=== PATIENT | female | born 1955 | race Caucasian/White ===

== ENCOUNTER 2024-09-26 11:07 | Inpatient (IN) | payer MEDICARE, BC ==
[~2024-09-26] VITALS: Ht 162.6 cm; Wt 88.0 kg
[2024-09-26 11:51] LABS: BASOPHILS ABSOLUTE AUTO 0.08 K/mm3 (0.00-0.23); BASOPHILS PERCENT AUTO 1 % (0-2); EOSINOPHILS ABSOLUTE AUTO 0.25 K/mm3 (0.00-0.68); EOSINOPHILS PERCENT AUTO 2 % (0-6); Hematocrit 32.0 % (33.0-51.0); Hemoglobin 9.7 g/dL (11.5-16.0); IMMATURE GRAN ABSOLUTE AUTO 0.09 K/mm3 (0.00-0.10); IMMATURE GRAN PERCENT AUTO 1 % (0-1); LYMPHOCYTES ABSOLUTE AUTO 1.53 K/mm3 (0.84-5.20); LYMPHOCYTES PERCENT AUTO 10 % (21-46); MONOCYTES ABSOLUTE AUTO 1.39 K/mm3 (0.16-1.47); MONOCYTES PERCENT AUTO 9 % (4-13); Mean Corpuscular HGB Conc 30.3 g/dL (31.5-36.5); Mean Corpuscular Volume 81 fL (80-100); NEUTROPHILS ABSOLUTE AUTO 11.40 K/mm3 (1.96-9.15); NEUTROPHILS PERCENT AUTO 77 % (41-73); NRBC ABSOLUTE 0.00 K/mm3 (0.00-0.02); NRBC Auto 0.0 /100 WBC (0.0-0.2); Platelet Count 432 K/mm3 (150-400); RDW Coefficient Variation 17.0 % (11.7-14.2); RDW Standard Deviation 50.1 fL (35.1-46.3)
[2024-09-26 12:01] LABS: Source, Urine Clean Catch
[2024-09-26 12:16] LABS: Alanine Aminotransfer (ALT/SGP 18.0 U/L (12-78); Albumin, Blood 3.2 g/dL (3.4-5.0); Albumin/Globulin Ratio 0.7 (0.8-1.8); Anion Gap 12.0 mmol/L (3-11); Aspartate Aminotrans (AST/SGOT 11.0 U/L (12-37); Bilirubin, Total 0.4 mg/dL (0.1-1.0); Blood Urea Nitrogen 37.0 mg/dL (8-24); CO2, Blood 24.0 mmol/L (21-32); Calcium, Blood 9.7 mg/dL (8.5-10.1); Chloride, Blood 103.0 mmol/L (98-108); Creatinine, Blood 2.91 mg/dL (0.40-1.00); Globulin, Blood 4.8 g/dL (2.2-4.0); Glucose, Blood 106.0 mg/dL (70-99); Potassium, Blood 3.5 mmol/L (3.5-5.5); Sodium, Blood 135.0 mmol/L (136-145); Total Protein, Blood 8.0 g/dL (6.4-8.2)
[2024-09-26 12:51] LABS: Bilirubin, Urine Neg (Neg); Color, Urine Amber (P-Yellow); Glucose Qualitative, Urine Neg (Neg); Ketones, Urine Neg (Neg); Leukocyte Esterase, Urine 2+ (Neg); Protein, Urine 2+ (Neg); Specific Gravity, Urine 1.025 (1.003-1.022); Urobilinogen, Urine NORM (Normal)
[2024-09-26 12:57] LABS: White Blood Cells, Urine 25-50 /hpf (0-5); Yeast/Fungi Urine Few /hpf
[2024-09-26] MEDS ORDERED: CefTRIAXone Sodium 1,000 MG in NS 100 ML IV ONE (13:35)
[2024-09-26] MEDS ORDERED: NS 1,000 ML IV SCH ×3 (13:35→18:00)
[2024-09-26] MEDS ORDERED: Ondansetron HCl 2 MG / ML 2ML Vial IV PRN (16:10)
[2024-09-26] MEDS ORDERED: Polyethylene Glycol 3350 17 gm PO PRN (16:50)
[2024-09-26 17:21] VITALS: BP 99/82
--- NOTE | 2024-09-26 18:16 | NUR ---
arrival to pcu/shift summary patient arrived to pcu at 1715. patient is alert and oriented x4, but is a poor historian and needs to be redircted back to the conversation. perrla. patient will fall asleep when not being conversed with. patient denies pain, chest pain/pressure or shortness of breath. vital signs stable. tele sinus rhythm 70s. spo2 >90% on room air. patient had a recent nephrostmy tube placement and removal when in [facility] and info for that is in the paper chart. patient reports pain with urination. patient has reddness to outer big right toe and right second toe that is blanchagle. photoes in chart. patient exorication on bottom and pictures in chart. home med rec not complete due to patient not knowing home meds and not sure what pharmacy she uses. admit history complete. admit assessment complete. plan to do iv abx and iv fluids at this time.
--- NOTE | 2024-09-26 19:32 | NUR ---
ASSUMPTION OF CARE ASSUMED PT'S CARE AT 1900,BEDSIDE REPORT COMPLETED.PT SLEEPING,BREATHING EVEN AND UNLABORED.NO S/S OF PAIN/DISCOMFORT NOTED.PLAN OF CARE REVIEWED.OXYGEN SATURATION 91% ON RA.CALL LIGHT AND PT'S ITEMS WITHIN REACH.MONITORING ONGOING PER CARE PLAN.
[2024-09-26 20:12] VITALS: BP 123/58
[2024-09-26] MEDS ORDERED: Heparin Sodium,Porcine 5,000 UNIT/0.5 ML SDV SC SCH (21:00)
[2024-09-26] MEDS ORDERED: Lactobacil 2-S.Thermo-Bifido 1 1 Cap PO SCH (21:00)
[2024-09-26 23:45] VITALS: BP 128/66
[2024-09-26 23:55] VITALS: BP 142/69
--- NOTE | 2024-09-27 00:48 | NUR ---
CARE NOTE DURING MIDNIGHT ASSESSMENT NOTED NO URINE OUTPUT SINCE 1900.PT NOT INCONTINENT OF URINE UPON CHECKING HER BRIEF.PT C/O SUPRAPUBIC PAIN WITH PALPATION BUT DID NOT ANSWER WHEN ASKED IF SHE FEELS THE URGE TO URINATE.PT REFUSED TO BE BLADDER SCANNED.INFORMED PT THAT WILL CHECK ON HER AGAIN AND IF NO URINE OUTPUT NOTED,BLADDER SCANNING WILL BE NECESSARY TO CHECK IF SHE IS RETAINING URINE.PT WENT BACK TO SLEEP.
[2024-09-27 04:20] VITALS: BP 134/62
[2024-09-27 04:55] LABS: BASOPHILS ABSOLUTE AUTO 0.03 K/mm3 (0.00-0.23); BASOPHILS PERCENT AUTO 0 % (0-2); EOSINOPHILS ABSOLUTE AUTO 0.32 K/mm3 (0.00-0.68); EOSINOPHILS PERCENT AUTO 4 % (0-6); Hematocrit 32.0 % (33.0-51.0); Hemoglobin 9.2 g/dL (11.5-16.0); IMMATURE GRAN ABSOLUTE AUTO 0.04 K/mm3 (0.00-0.10); IMMATURE GRAN PERCENT AUTO 1 % (0-1); LYMPHOCYTES ABSOLUTE AUTO 1.30 K/mm3 (0.84-5.20); LYMPHOCYTES PERCENT AUTO 17 % (21-46); MONOCYTES ABSOLUTE AUTO 0.62 K/mm3 (0.16-1.47); MONOCYTES PERCENT AUTO 8 % (4-13); Mean Corpuscular HGB Conc 28.8 g/dL (31.5-36.5); Mean Corpuscular Volume 84 fL (80-100); NEUTROPHILS ABSOLUTE AUTO 5.14 K/mm3 (1.96-9.15); NEUTROPHILS PERCENT AUTO 69 % (41-73); NRBC ABSOLUTE 0.00 K/mm3 (0.00-0.02); NRBC Auto 0.0 /100 WBC (0.0-0.2); Platelet Count 406 K/mm3 (150-400); RDW Coefficient Variation 17.1 % (11.7-14.2); RDW Standard Deviation 51.8 fL (35.1-46.3)
[2024-09-27 05:27] LABS: Alanine Aminotransfer (ALT/SGP 15.0 U/L (12-78); Albumin, Blood 2.7 g/dL (3.4-5.0); Albumin/Globulin Ratio 0.6 (0.8-1.8); Anion Gap 7.0 mmol/L (3-11); Aspartate Aminotrans (AST/SGOT 11.0 U/L (12-37); Bilirubin, Total 0.2 mg/dL (0.1-1.0); Blood Urea Nitrogen 31.0 mg/dL (8-24); CO2, Blood 25.0 mmol/L (21-32); Calcium, Blood 9.0 mg/dL (8.5-10.1); Chloride, Blood 112.0 mmol/L (98-108); Creatinine, Blood 1.73 mg/dL (0.40-1.00); Globulin, Blood 4.4 g/dL (2.2-4.0); Glucose, Blood 86.0 mg/dL (70-99); Potassium, Blood 4.1 mmol/L (3.5-5.5); Sodium, Blood 140.0 mmol/L (136-145); Total Protein, Blood 7.1 g/dL (6.4-8.2)
[2024-09-27] MEDS ORDERED: Levothyroxine Sodium 0.137 MG Tab PO SCH (06:00)
--- NOTE | 2024-09-27 06:10 | NUR ---
PT MONITORED THROUGH THE NIGHT,VOIDED ONCE DURING THE SHIFT.PAIN MEDS GIVEN PER PT'S REQUEST.PT NOTED TO HAVE MOOD SWINGS,OCCASIONALLY VERBALLY AGGRESSIVE AND YELLS AT STAFF.IRRITABLE AND ARGUES WITH STAFF.NOT EASILY REDIRECTABLE.PT AWAKE,RESTING IN BED.PT GIVEN PRN TRAMADOL 50MG PO FOR PAIN.PT STATES THAT SHE TAKES 200MCG OF LEVOTHYROXINE,ORDERED DOSE 0.137MG.THIS NURSE CONTACTING DOCTOR FOR DOSE ADJUSTMENT.PT DENIES FURTHER NEEDS.CALL LIGHT AND PT'S ITEMS WITHIN REACH.BED ALARM ON.MONITORING ONGOING PER CAREPLAN.
[2024-09-27 07:45] VITALS: BP 125/70
[2024-09-27] MEDS ORDERED: CefTRIAXone Sodium 1,000 MG in NS 100 ML IV SCH (09:00)
--- NOTE | 2024-09-27 09:38 | NUR ---
AM NOTE PT A&OX4, VSS, SR IN 70S ON TELE, CONT. PULSE OX SATTING AT 97% 2L O2, REMOVED O2 SAT>94% RA. PT ANXIOUS ABOUT PLAN OF CARE. ROUNDED ALL QUESTIONS ANSWERED. 1PA WITH FWW TO BSC TO URINATE. CALL LIGHT IN REACH.
[2024-09-27] MEDS ORDERED: Albuterol HFA200 ACT/6.7 GM INH INH SCH (10:50)
[2024-09-27 11:07] VITALS: BP 131/69
[2024-09-27] MEDS ORDERED: Albuterol HFA200 ACT/6.7 GM INH INH PRN (13:40)
[2024-09-27] MEDS ORDERED: LEVOTHYROXINE200 MCG PO (15:26)
[2024-09-27] MEDS ORDERED: OMEP20ER PO (15:26)
--- NOTE | 2024-09-27 18:36 | NUR ---
PATIENT ARRIVED TO THE UNIT VIA WHEELCHAIR, SHE WAS ABLE TO TRANSFER WITH PERSON ASSIST TO THE BED. SKIN ASSESS, IV ASSESSED; NOT PATENT; CALLED DR. HOLMAN TO SEE IF IV MEDS COULD BE CHANGED AND NO IV ACCESS COULD BE APPROPRIATE. PER DR. HOLMAN WOULD LIKE FOR THE PATIENT TO HAVE AN IV. PATIENT SETTLED IN ROOM, CALL LIGHT PROVIDED, NO SIGNS OR SYMPTOMS OF DISTRESS,PLAN OF CARE ONGOING.
--- NOTE | 2024-09-27 18:36 | NUR ---
CALLED AND GOT REPORT FROM RAFAEL GLASGOW
[2024-09-27 18:52] VITALS: BP 124/67
--- NOTE | 2024-09-27 18:52 | NUR ---
SHIFT/TRANSFER SUMMARY ASSUMED CARE FROM PRIOR DAY RN, BESIDE REPORT DONE, PT IN BED AND NOT NEEDING ANYTHING AT THIS TIME. MEDICATED FOR PAIN ONE TIME BY THIS RN, MIXED INCONTINENT/CONTINENT VOIDS TODAY. NO ACUTE EVENTS, PT TRANSFERRED UP TO MEDICAL FLOOR AT 1835, REPORT GIVEN TO MEDICAL FLOOR RN.
--- NOTE | 2024-09-27 18:59 | NUR ---
PT ARGUING WITH STAFF STATING THAT SHE WAS TOLD "DOWNSTAIRS" THAT SHE WAS DONE WITH THE IV AND WOULD BE SWITCHING TO ORAL MEDICATIONS. EXPLAINED TO THE PATIENT THAT I CALLED AND SPOKE WITH DR. HOLMAN, EXPLAINED TO HIM THAT THE PATIENT LOST IV ACCESS AND ISN'T WILLING TO GET A NEW IV. PER LAST NURSE NOTE; WOULD LIKE FOR THE PATIENT TO GET A NEW IV AND CONTINUE GETTING IV ANTIBIOTICS. PATIENT TOLD THIS RN AFTER THIS EXPLAINATION; TURNING RED IN THE FACE RAISING HER VOICE THAT "I WILL GO TO SNF, AND THAT SHE IS THE PATIENT AND THAT HER INSURANCE PAYS FOR ME TO BE HERE." AT THIS POINT I TOLD THE PATIENT I WASN'T GOING TO ARGUE WITH HER AND LEFT THE ROOM.
[2024-09-27 20:27] VITALS: BP 120/80
[2024-09-28 04:40] VITALS: BP 148/72
[2024-09-28 05:18] LABS: BASOPHILS ABSOLUTE AUTO 0.03 K/mm3 (0.00-0.23); BASOPHILS PERCENT AUTO 1 % (0-2); EOSINOPHILS ABSOLUTE AUTO 0.29 K/mm3 (0.00-0.68); EOSINOPHILS PERCENT AUTO 5 % (0-6); Hematocrit 27.1 % (33.0-51.0); Hemoglobin 8.0 g/dL (11.5-16.0); IMMATURE GRAN ABSOLUTE AUTO 0.04 K/mm3 (0.00-0.10); IMMATURE GRAN PERCENT AUTO 1 % (0-1); LYMPHOCYTES ABSOLUTE AUTO 1.69 K/mm3 (0.84-5.20); LYMPHOCYTES PERCENT AUTO 28 % (21-46); MONOCYTES ABSOLUTE AUTO 0.66 K/mm3 (0.16-1.47); MONOCYTES PERCENT AUTO 11 % (4-13); Mean Corpuscular HGB Conc 29.5 g/dL (31.5-36.5); Mean Corpuscular Volume 84 fL (80-100); NEUTROPHILS ABSOLUTE AUTO 3.43 K/mm3 (1.96-9.15); NEUTROPHILS PERCENT AUTO 56 % (41-73); NRBC ABSOLUTE 0.00 K/mm3 (0.00-0.02); NRBC Auto 0.0 /100 WBC (0.0-0.2); Platelet Count 348 K/mm3 (150-400); RDW Coefficient Variation 16.5 % (11.7-14.2); RDW Standard Deviation 50.4 fL (35.1-46.3)
[2024-09-28 05:49] LABS: Alanine Aminotransfer (ALT/SGP 14 U/L (12-78); Albumin, Blood 2.5 g/dL (3.4-5.0); Albumin/Globulin Ratio 0.6 (0.8-1.8); Anion Gap 8 mmol/L (3-11); Aspartate Aminotrans (AST/SGOT 9 U/L (12-37); Bilirubin, Total <0.1 mg/dL (0.1-1.0); Blood Urea Nitrogen 21 mg/dL (8-24); CO2, Blood 25 mmol/L (21-32); Calcium, Blood 8.8 mg/dL (8.5-10.1); Chloride, Blood 110 mmol/L (98-108); Creatinine, Blood 1.33 mg/dL (0.40-1.00); Globulin, Blood 3.9 g/dL (2.2-4.0); Glucose, Blood 98 mg/dL (70-99); Potassium, Blood 4.1 mmol/L (3.5-5.5); Sodium, Blood 139 mmol/L (136-145); Total Protein, Blood 6.4 g/dL (6.4-8.2)
--- NOTE | 2024-09-28 05:54 | NUR ---
SHIFT SUMMARY PT ALERT AND ORIENTED TIMES 3-4 . PT ADMITTED FOR ON SEPSIS SECONDARY TO UTI. PT HAD IV PRIOR TO TRANSFER TO MED FLOOR. DURING NURSE (DAY) ACCEPTANCE OF CARE , PT WAS NOTICED TO NOT HAVE IV PLACED OR WAS TAPE TO PT BUT IV WAWS NOT CONNECTED. PT STATED THAT THEY LATER CLARIFIED BY RN TO BE PCU STAFF, TOLD PT THAT THEY NO LONGER NEEDED THE IV, AND WOULD BE GETTING PO ABX. DAY RN SPOKE TO DR AND VERIFIED THAT PT STILL NEEDED IV ABX. PT BECAME ARGUMENTATIVE WITH RN TO WHICH RN POLITELY REMOVED SELF FROM CONVERSATION. ADVISED CHARGE NURSE OF SITUATION. PT IS ON ROOM AIR. PT IS 1 PERSON ASSIST W/FWW. CALL LIGHT WITHIN REACH, RAILS TIMES 2, BED IN LOW POSITION.
[2024-09-28 08:46] VITALS: BP 148/69
[2024-09-28] MEDS ORDERED: NS 250 ML IV PRN (10:25)
--- NOTE | 2024-09-28 12:25 | NUR ---
1215- PT REFUSING TO HAVE THIS RN PLACE AN IV ANYWHERE EXCEPT HER LEFT HAND. RN INFORMED PT OF RISKS VS BENEFITS FOR RECEIVING IV ABX IN THE HAND. PT VERBALIZED UNDERSTANDING AND STILL WANTED LEFT HAND IV DESPITE EDUCATION.
[2024-09-28 15:39] VITALS: BP 147/70
--- NOTE | 2024-09-28 19:14 | NUR ---
SHIFT SUMMARY PT IS A/OX4. SBA TO BATHROOM WITH FOUR WHEEL WALKER. NO ACUTE CHANGES THROUGHOUT THIS SHIFT. PT IS CONT/INCONT OF BLADDER. PT AGREED TO HAVE IV REPLACED THIS MORNING AFTER SPEAKING WITH THE DOCTOR REGARDING CONTINUING IV ANTIBIOTICS. PT CALLS APPROPRIAELY USING THE CALL LIGHT.
[2024-09-28 19:40] VITALS: BP 162/78
[2024-09-28] MEDS ORDERED: Haloperidol Lactate Inj. 5 MG/ML Injection IM ONE (23:25)
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
[2024-09-29 06:00] VITALS: BP 154/74
[2024-09-29 09:15] LABS: BASOPHILS ABSOLUTE AUTO 0.03 K/mm3 (0.00-0.23); BASOPHILS PERCENT AUTO 1 % (0-2); EOSINOPHILS ABSOLUTE AUTO 0.27 K/mm3 (0.00-0.68); EOSINOPHILS PERCENT AUTO 5 % (0-6); Hematocrit 32.7 % (33.0-51.0); Hemoglobin 10.1 g/dL (11.5-16.0); IMMATURE GRAN ABSOLUTE AUTO 0.02 K/mm3 (0.00-0.10); IMMATURE GRAN PERCENT AUTO 0 % (0-1); LYMPHOCYTES ABSOLUTE AUTO 1.40 K/mm3 (0.84-5.20); LYMPHOCYTES PERCENT AUTO 28 % (21-46); MONOCYTES ABSOLUTE AUTO 0.39 K/mm3 (0.16-1.47); MONOCYTES PERCENT AUTO 8 % (4-13); Mean Corpuscular HGB Conc 30.9 g/dL (31.5-36.5); Mean Corpuscular Volume 80 fL (80-100); NEUTROPHILS ABSOLUTE AUTO 2.88 K/mm3 (1.96-9.15); NEUTROPHILS PERCENT AUTO 58 % (41-73); NRBC ABSOLUTE 0.00 K/mm3 (0.00-0.02); NRBC Auto 0.0 /100 WBC (0.0-0.2); Platelet Count 400 K/mm3 (150-400); RDW Coefficient Variation 16.2 % (11.7-14.2); RDW Standard Deviation 46.5 fL (35.1-46.3)
[2024-09-29 09:34] LABS: Alanine Aminotransfer (ALT/SGP 18.0 U/L (12-78); Albumin, Blood 3.1 g/dL (3.4-5.0); Albumin/Globulin Ratio 0.6 (0.8-1.8); Anion Gap 8.0 mmol/L (3-11); Aspartate Aminotrans (AST/SGOT 13.0 U/L (12-37); Bilirubin, Total 0.1 mg/dL (0.1-1.0); Blood Urea Nitrogen 22.0 mg/dL (8-24); CO2, Blood 26.0 mmol/L (21-32); Calcium, Blood 10.2 mg/dL (8.5-10.1); Chloride, Blood 105.0 mmol/L (98-108); Creatinine, Blood 1.22 mg/dL (0.40-1.00); Globulin, Blood 4.8 g/dL (2.2-4.0); Glucose, Blood 130.0 mg/dL (70-99); Potassium, Blood 4.2 mmol/L (3.5-5.5); Sodium, Blood 135.0 mmol/L (136-145); Total Protein, Blood 7.9 g/dL (6.4-8.2)
[2024-09-29 15:36] VITALS: BP 134/66
--- NOTE | 2024-09-29 17:58 | NUR ---
SHIFT SUMMARY- PT HAS HAD NO ACUTE CHANGE T/O THE DAY. SHE DID GET A RESULT ON THE CULTURE AND SENSITIVITY OF HER URINE SAMPLE. ABX WERE CHANGED AND THE PT WAS TOLD SHE IS GOING TO REQUIRE 5 DAYS OF ANTIBIOTIC TREATMENT FROM TODAY BECAUSE HER URINE GREW ESBL. PT PLACED IN CONTACT ISO FOR ESBL. PT CONTINUES TO HAVE CONVERSATIONS WITH AN EMPTY ROOM. SHE HAS HAD INCONTINENCE OF BLADDER WHILE ASLEEP. PT CAN BECOME IRATE IF SHE DOES NOT FULLY UNDERSTAND WHAT IS GOING ON. IN HER WORDS IT MAKES HER "SUSPICIOUS." SHE CAN BECOME PARANOID WITH THE CARE STAFF ARE PROVIDING WHN THERE IS A CHANGE IN THE ROUTINE. PT IS CURRENTLY IN HER ROOM TALKING TO HERSELF. NO S&S OF DISTRESS NOTED.
[2024-09-30 02:31] VITALS: BP 110/68
--- NOTE | 2024-09-30 05:07 | NUR ---
PT A&OX4, INDEPENDENT. PT HAVING AUDITORY, VISUAL HALLUCINATIONS AND PARANOIA. HAS BEEN PLEASANT, COOPERATIVE AND ARGUMENTATIVE AT TIMES. PT HAD AN EPISODE OF INCONTIENCE OF URINE AND FECES WHILE SLEEPING. HAS BEEN INDEPENDENT IN ROOM AND WALKING AROUND HALLS. STEADY ON FEET. NO ACUTE CHANGES NOTED THIS SHIFT.
[2024-09-30 06:21] LABS: BASOPHILS ABSOLUTE AUTO 0.02 K/mm3 (0.00-0.23); BASOPHILS PERCENT AUTO 0 % (0-2); EOSINOPHILS ABSOLUTE AUTO 0.32 K/mm3 (0.00-0.68); EOSINOPHILS PERCENT AUTO 6 % (0-6); Hematocrit 32.7 % (33.0-51.0); Hemoglobin 9.9 g/dL (11.5-16.0); IMMATURE GRAN ABSOLUTE AUTO 0.02 K/mm3 (0.00-0.10); IMMATURE GRAN PERCENT AUTO 0 % (0-1); LYMPHOCYTES ABSOLUTE AUTO 2.13 K/mm3 (0.84-5.20); LYMPHOCYTES PERCENT AUTO 39 % (21-46); MONOCYTES ABSOLUTE AUTO 0.50 K/mm3 (0.16-1.47); MONOCYTES PERCENT AUTO 9 % (4-13); Mean Corpuscular HGB Conc 30.3 g/dL (31.5-36.5); Mean Corpuscular Volume 80 fL (80-100); NEUTROPHILS ABSOLUTE AUTO 2.44 K/mm3 (1.96-9.15); NEUTROPHILS PERCENT AUTO 45 % (41-73); NRBC ABSOLUTE 0.00 K/mm3 (0.00-0.02); NRBC Auto 0.0 /100 WBC (0.0-0.2); Platelet Count 384 K/mm3 (150-400); RDW Coefficient Variation 16.4 % (11.7-14.2); RDW Standard Deviation 47.0 fL (35.1-46.3)
[2024-09-30 06:48] LABS: Alanine Aminotransfer (ALT/SGP 16.0 U/L (12-78); Albumin, Blood 3.0 g/dL (3.4-5.0); Albumin/Globulin Ratio 0.7 (0.8-1.8); Anion Gap 8.0 mmol/L (3-11); Aspartate Aminotrans (AST/SGOT 11.0 U/L (12-37); Bilirubin, Total 0.2 mg/dL (0.1-1.0); Blood Urea Nitrogen 23.0 mg/dL (8-24); CO2, Blood 27.0 mmol/L (21-32); Calcium, Blood 9.8 mg/dL (8.5-10.1); Chloride, Blood 106.0 mmol/L (98-108); Creatinine, Blood 1.31 mg/dL (0.40-1.00); Globulin, Blood 4.2 g/dL (2.2-4.0); Glucose, Blood 86.0 mg/dL (70-99); Potassium, Blood 4.3 mmol/L (3.5-5.5); Sodium, Blood 137.0 mmol/L (136-145); Total Protein, Blood 7.2 g/dL (6.4-8.2)
[2024-09-30 07:55] VITALS: BP 103/76
[2024-09-30] MEDS ORDERED: ATOR40TA PO (13:01)
--- NOTE | 2024-09-30 13:55 | NUR ---
DISCHARGE NOTE- PT WAS GIVEN VERBAL AND WRITTEN DISCHARGE INSTRUCTIONS AND ACKNOWLEDGED UNDERSTANDING OF THEM. HER IV WAS DC'D PRIOR TO DISCHARGE. PT DECLINED ESCORT AND WALKED OUT UNDER HER OWN POWER WITH HER PERSONAL WALKER. PT IS ALERT TO SELF SHE CAN BE AGRESSIVE AND SPENDS A LOT OF TIME YELLING AT PEOPLE WHO ARE NOT THERE. SHE HAS VISUAL AND AUDITORY HALLUCIANATIONS AT BASELINE PER PIOR REPORT. PT WAS ADIMANT SHE NEEDED TO BE DISCHARGED TODAY, NOW! SO DISCHARGE WAS COMPLETED SOON ORDERS WERE RECIEVED. PT REQUESTED HER MEDS TO BE FAXED TO [facility]. NO S&S OF DISTRESS NOTED AT THE TIME OF DISCHARGE.
== END 2024-09-30 13:26 | disposition home or self-care (01) | DRG 871 ==
LOC: ER 11:07 → MEDS 16:04 → PCU 16:04 → MEDS 09-27 18:42
PROVIDERS: Family Medicine; Physician Assistant; Registered Nurse; ADMIT Hospitalist
DX: A41.9 Sepsis, unspecified organism (principal); G93.41 Metabolic encephalopathy; N17.9 Acute kidney failure, unspecified; N39.0 Urinary tract infection, site not specified; N18.4 Chronic kidney disease, stage 4 (severe); Z59.01 Sheltered homelessness; R65.20 Severe sepsis without septic shock; E89.0 Postprocedural hypothyroidism; N20.0 Calculus of kidney; F20.9 Schizophrenia, unspecified; Z93.8 Other artificial opening status; E05.00 Thyrotoxicosis with diffuse goiter without thyrotoxic crisis or storm; Z87.01 Personal history of pneumonia (recurrent); Z87.440 Personal history of urinary (tract) infections; Z88.5 Allergy status to narcotic agent; Z91.041 Radiographic dye allergy status
CPT/HCPCS: 36415; 74176; 80053; 81001; 83605; 84439; 84443; 84481; 85025; 87040; 87077; 87086; 87186; 94640; 94664; 94760; 94762; 96365; 96366; 99285-25; A9270; J0696; J1644; J2185; J7030; J7050

== ENCOUNTER 2024-10-08 04:50 | Emergency (ER) | payer MEDICARE, BC ==
[~2024-10-08] VITALS: Ht 165.1 cm; Wt 77.1 kg
[~2024-10-08 04:50] MED LIST: ATOR40TA PO; LEVOTHYROXINE200 MCG PO; OMEP20ER PO
[2024-10-08 06:26] LABS: Source, Urine Clean Catch
[2024-10-08 06:35] LABS: Bilirubin, Urine Neg (Neg); Color, Urine Yellow (P-Yellow); Glucose Qualitative, Urine Neg (Neg); Ketones, Urine Neg (Neg); Leukocyte Esterase, Urine Neg (Neg); Protein, Urine Neg (Neg); Specific Gravity, Urine 1.015 (1.003-1.022); Urobilinogen, Urine NORM (Normal)
[2024-10-08 07:49] LABS: BASOPHILS ABSOLUTE AUTO 0.04 K/mm3 (0.00-0.23); BASOPHILS PERCENT AUTO 1 % (0-2); EOSINOPHILS ABSOLUTE AUTO 0.28 K/mm3 (0.00-0.68); EOSINOPHILS PERCENT AUTO 4 % (0-6); Hematocrit 33.4 % (33.0-51.0); Hemoglobin 10.0 g/dL (11.5-16.0); IMMATURE GRAN ABSOLUTE AUTO 0.04 K/mm3 (0.00-0.10); IMMATURE GRAN PERCENT AUTO 1 % (0-1); LYMPHOCYTES ABSOLUTE AUTO 1.80 K/mm3 (0.84-5.20); LYMPHOCYTES PERCENT AUTO 24 % (21-46); MONOCYTES ABSOLUTE AUTO 0.78 K/mm3 (0.16-1.47); MONOCYTES PERCENT AUTO 10 % (4-13); Mean Corpuscular HGB Conc 29.9 g/dL (31.5-36.5); Mean Corpuscular Volume 81 fL (80-100); NEUTROPHILS ABSOLUTE AUTO 4.68 K/mm3 (1.96-9.15); NEUTROPHILS PERCENT AUTO 62 % (41-73); NRBC ABSOLUTE 0.00 K/mm3 (0.00-0.02); NRBC Auto 0.0 /100 WBC (0.0-0.2); Platelet Count 404 K/mm3 (150-400); RDW Coefficient Variation 16.9 % (11.7-14.2); RDW Standard Deviation 49.6 fL (35.1-46.3)
[2024-10-08 08:05] LABS: Anion Gap 7.0 mmol/L (3-11); Blood Urea Nitrogen 19.0 mg/dL (8-24); CO2, Blood 30.0 mmol/L (21-32); Calcium, Blood 9.8 mg/dL (8.5-10.1); Chloride, Blood 107.0 mmol/L (98-108); Creatinine, Blood 1.01 mg/dL (0.40-1.00); Glucose, Blood 92.0 mg/dL (70-99); Potassium, Blood 3.8 mmol/L (3.5-5.5); Sodium, Blood 140.0 mmol/L (136-145)
[2024-10-08] MEDS ORDERED: Ketorolac Tromethamine 15mg Vial IV ONE (10:25)
== END 2024-10-08 10:42 | disposition home or self-care (01) ==
LOC: ER 04:50
PROVIDERS: Emergency Medicine; Student in an Organized Health Care Education/Training Program
DX: R30.0 Dysuria (principal); D64.9 Anemia, unspecified; E89.0 Postprocedural hypothyroidism; E78.5 Hyperlipidemia, unspecified; N18.4 Chronic kidney disease, stage 4 (severe); K21.9 Gastro-esophageal reflux disease without esophagitis; F17.210 Nicotine dependence, cigarettes, uncomplicated; Z59.02 Unsheltered homelessness; Z88.5 Allergy status to narcotic agent; Z88.8 Allergy status to other drugs, medicaments and biological substances; Z91.041 Radiographic dye allergy status; Z79.890 Hormone replacement therapy; Z79.899 Other long term (current) drug therapy
CPT/HCPCS: 51701; 80048; 81003; 85025; 96374; 99284-25; A6590; A9270; J1885

== ENCOUNTER 2024-10-11 15:53 | Inpatient (IN) | payer MEDICARE, BC ==
[~2024-10-11] VITALS: Ht 162.6 cm; Wt 90.2 kg
[2024-10-11 16:27] LABS: BASOPHILS ABSOLUTE AUTO 0.06 K/mm3 (0.00-0.23); BASOPHILS PERCENT AUTO 1 % (0-2); EOSINOPHILS ABSOLUTE AUTO 0.35 K/mm3 (0.00-0.68); EOSINOPHILS PERCENT AUTO 4 % (0-6); Hematocrit 29.0 % (33.0-51.0); Hemoglobin 8.4 g/dL (11.5-16.0); IMMATURE GRAN ABSOLUTE AUTO 0.07 K/mm3 (0.00-0.10); IMMATURE GRAN PERCENT AUTO 1 % (0-1); LYMPHOCYTES ABSOLUTE AUTO 2.47 K/mm3 (0.84-5.20); LYMPHOCYTES PERCENT AUTO 27 % (21-46); MONOCYTES ABSOLUTE AUTO 0.87 K/mm3 (0.16-1.47); MONOCYTES PERCENT AUTO 10 % (4-13); Mean Corpuscular HGB Conc 29.0 g/dL (31.5-36.5); Mean Corpuscular Volume 84 fL (80-100); NEUTROPHILS ABSOLUTE AUTO 5.33 K/mm3 (1.96-9.15); NEUTROPHILS PERCENT AUTO 58 % (41-73); NRBC ABSOLUTE 0.00 K/mm3 (0.00-0.02); NRBC Auto 0.0 /100 WBC (0.0-0.2); Platelet Count 355 K/mm3 (150-400); RDW Coefficient Variation 17.1 % (11.7-14.2); RDW Standard Deviation 52.9 fL (35.1-46.3)
[2024-10-11 16:47] LABS: Alanine Aminotransfer (ALT/SGP 18.0 U/L (12-78); Albumin, Blood 3.2 g/dL (3.4-5.0); Albumin/Globulin Ratio 0.9 (0.8-1.8); Anion Gap 7.0 mmol/L (3-11); Aspartate Aminotrans (AST/SGOT 13.0 U/L (12-37); Bilirubin, Total 0.2 mg/dL (0.1-1.0); Blood Urea Nitrogen 29.0 mg/dL (8-24); CO2, Blood 28.0 mmol/L (21-32); Calcium, Blood 8.6 mg/dL (8.5-10.1); Chloride, Blood 104.0 mmol/L (98-108); Creatinine, Blood 1.14 mg/dL (0.40-1.00); Globulin, Blood 3.6 g/dL (2.2-4.0); Glucose, Blood 86.0 mg/dL (70-99); Potassium, Blood 5.0 mmol/L (3.5-5.5); Sodium, Blood 134.0 mmol/L (136-145); Total Protein, Blood 6.8 g/dL (6.4-8.2)
[2024-10-11] MEDS ORDERED: DiphenhydrAMINE HCl 50 MG/ML 1ML Vial IV ONE (17:40)
[2024-10-11] MEDS ORDERED: Miconazole Nitrate 2% 85 GM PWD TOP ONE (19:25)
[2024-10-11] MEDS ORDERED: Ondansetron HCl 2 MG / ML 2ML Vial IV PRN (20:55)
[2024-10-11] MEDS ORDERED: NS 1,000 ML IV SCH (20:55)
[2024-10-11 21:12] LABS: Hematocrit 29.6 % (33.0-51.0); Hemoglobin 8.6 g/dL (11.5-16.0)
[2024-10-12 00:28] VITALS: BP 134/67
[2024-10-12 02:33] LABS: Hematocrit 33.0 % (33.0-51.0); Hemoglobin 9.6 g/dL (11.5-16.0)
[2024-10-12 04:00] VITALS: BP 145/63
[2024-10-12 04:02] LABS: Source, Urine Straight Cath
[2024-10-12 04:06] LABS: Bilirubin, Urine Neg (Neg); Glucose Qualitative, Urine Neg (Neg); Ketones, Urine Neg (Neg); Leukocyte Esterase, Urine Neg (Neg); Protein, Urine Neg (Neg); Specific Gravity, Urine 1.010 (1.003-1.022); Urobilinogen, Urine NORM (Normal)
[2024-10-12 04:07] LABS: Color, Urine Yellow (P-Yellow)
[2024-10-12 04:25] LABS: U Amphetamine Screen Not Detected; U Barbituate Screen Not Detected; U Benzodiazapine Screen Not Detected; U Buprenorphine Screen Not Detected; U Cannabinoids Screen Not Detected; U Cocaine Screen Not Detected; U Methadone Screen Not Detected; U Methamphetamine Screen Not Detected; U Opiates Screen Not Detected; U Oxycodone Screen Not Detected; U Phencyclidine Screen Not Detected
--- NOTE | 2024-10-12 07:35 | NUR ---
SHIFT SUMMARY PT ARRIVED FROM ED APROX 2335. HERE WITH POSSIBLE GI BLEED. WILL HAVE CONSULT IN AM FROM HOUSE PRINCIPAL. PT EXTREMELY GROGGY WHEN SHE CAME IN. COULD NOT BE UNDERSTOOD CLEARLY. PT WOKE UP AND WAS ABLE TO COMMUNICATE NEEDS, BUT IS STILL CONFUSED. SHE HAD A LARGE VOID AND LABS WERE COLLECTED AND SENT OFF. PT BACK TO SLEEP AND SNORING. IV CONTINUING TO OCCLUDE, PT WILL NOT STOP BENDING HER ARM. WILL RELAY TO DAY SHIFT.
[2024-10-12] MEDS ORDERED: Miconazole Nitrate 2% 85 GM PWD TOP SCH (09:00)
[2024-10-12 09:33] LABS: Hematocrit 31.6 % (33.0-51.0); Hemoglobin 9.2 g/dL (11.5-16.0)
--- NOTE | 2024-10-12 14:25 | NUR ---
PT NOTED TO BE A&O X4 AND IND IN ROOM. DR BERG FROM GENERAL SUR[facility]ERY CONSULTED PT THIS MORNING AND STATED THAT NO SURGERY WAS NEED AT THIS TIME. PT HGB NOTED TO IMPROVE SINCE ARRIVAL YESTERDAY. PT NOTED TO HAVE A HX OF SCHIZOPHRENIA AND PARANORA. PT NOTED TO HAVE EPISODES OF AGGRESSION TOWARD ORAL AND MAXILLOFACIAL PATHOLOGIST THIS SHIFT. ALOND WITH AUDITORY AND VISUAL HALLUCINATIONS. REPORT GIVEN TO DORIS GLASGOW WHO WILL BE TAKING OVER CARE OF PT PT IS MOVING TO ROOM 350.
--- NOTE | 2024-10-12 17:26 | NUR ---
SHIFT SUMMARY 1530 ASSUMED CARE OF PT MOVING TO RM 350 FROM 363. PT IS INDEPENDENT IN RM AND IN HALLS. CAN BE VERBALLY AGRESSIVE RELATED TO PARANOIA. CURRENTLY ON FL DIET; TOLERATING WELL. IVF'S D/C'D PRIOR TO RM TX. RESTING QUIETLY AT THIS TIME. CALL LT IN REACH.
--- NOTE | 2024-10-12 19:43 | NUR ---
PT DEMANDED TO LEAVE AMA. PT A/O X 4, HX OF PARANOID SCHIZOPHRENIA. HOSPITALIST NOTIFIED OF PT REQUEST TO LEAVE AMA AND THAT PT IS NOT ON HOLD. HOSPITALIST GAVE INSTRUCTIONS TO EXPLAIN RISKS OF AMA WHICH INCLUDES , HEAT STROKE, BLEEDING, READMIT TO ER FOR DHYDRATION, PT ACKNOWLEDGED AND ACCEPTED RISKS AND SIGNED AMA PAPERWORK AND LEFT WITH ALL BELONGINGS. PT GIVEN GATORADE DUE TO EXTREME HEAT OUTSIDE.
== END 2024-10-12 19:43 | disposition left against medical advice (07) | DRG 378 ==
LOC: ER 15:53 → MEDS 15:54 → ER 15:54 → MEDS 15:54
PROVIDERS: Nurse Practitioner Acute Care; Student in an Organized Health Care Education/Training Program; ADMIT Internal Medicine
DX: K92.1 Melena (principal); D62 Acute posthemorrhagic anemia; Z59.02 Unsheltered homelessness; N13.30 Unspecified hydronephrosis; F20.0 Paranoid schizophrenia; N18.4 Chronic kidney disease, stage 4 (severe); D63.1 Anemia in chronic kidney disease; N18.30 Chronic kidney disease, stage 3 unspecified; K21.9 Gastro-esophageal reflux disease without esophagitis; E78.5 Hyperlipidemia, unspecified; E89.0 Postprocedural hypothyroidism; B37.2 Candidiasis of skin and nail; R30.0 Dysuria; D64.9 Anemia, unspecified; F17.210 Nicotine dependence, cigarettes, uncomplicated; Z79.890 Hormone replacement therapy; Z53.29 Procedure and treatment not carried out because of patient's decision for other reasons; Z87.440 Personal history of urinary (tract) infections; Z88.8 Allergy status to other drugs, medicaments and biological substances; Z88.5 Allergy status to narcotic agent; Z91.041 Radiographic dye allergy status; Z79.899 Other long term (current) drug therapy
CPT/HCPCS: 36415; 51701; 74177; 80048; 80053; 81003; 83690; 85014; 85018; 85025; 96374; 96374-59; 96375; 99284-25; 99285-25; A6590; A9270; G0378; J1200; J1885; J2919; J7030; Q9967

== ENCOUNTER 2024-10-20 15:25 | Emergency (ER) | payer MEDICARE, BC ==
[~2024-10-20] VITALS: Ht 162.6 cm; Wt 77.1 kg
[2024-10-20 16:47] LABS: BASOPHILS ABSOLUTE AUTO 0.05 K/mm3 (0.00-0.23); BASOPHILS PERCENT AUTO 1 % (0-2); EOSINOPHILS ABSOLUTE AUTO 0.33 K/mm3 (0.00-0.68); EOSINOPHILS PERCENT AUTO 4 % (0-6); Hematocrit 29.8 % (33.0-51.0); Hemoglobin 9.0 g/dL (11.5-16.0); IMMATURE GRAN ABSOLUTE AUTO 0.05 K/mm3 (0.00-0.10); IMMATURE GRAN PERCENT AUTO 1 % (0-1); LYMPHOCYTES ABSOLUTE AUTO 1.84 K/mm3 (0.84-5.20); LYMPHOCYTES PERCENT AUTO 22 % (21-46); MONOCYTES ABSOLUTE AUTO 0.85 K/mm3 (0.16-1.47); MONOCYTES PERCENT AUTO 10 % (4-13); Mean Corpuscular HGB Conc 30.2 g/dL (31.5-36.5); Mean Corpuscular Volume 83 fL (80-100); NEUTROPHILS ABSOLUTE AUTO 5.45 K/mm3 (1.96-9.15); NEUTROPHILS PERCENT AUTO 64 % (41-73); NRBC ABSOLUTE 0.00 K/mm3 (0.00-0.02); NRBC Auto 0.0 /100 WBC (0.0-0.2); Platelet Count 311 K/mm3 (150-400); RDW Coefficient Variation 17.4 % (11.7-14.2); RDW Standard Deviation 52.2 fL (35.1-46.3)
[2024-10-20 17:47] LABS: Alanine Aminotransfer (ALT/SGP 20.0 U/L (12-78); Albumin, Blood 3.2 g/dL (3.4-5.0); Albumin/Globulin Ratio 0.9 (0.8-1.8); Anion Gap 10.0 mmol/L (3-11); Aspartate Aminotrans (AST/SGOT 13.0 U/L (12-37); Bilirubin, Total 0.2 mg/dL (0.1-1.0); Blood Urea Nitrogen 20.0 mg/dL (8-24); CO2, Blood 25.0 mmol/L (21-32); Calcium, Blood 9.2 mg/dL (8.5-10.1); Chloride, Blood 108.0 mmol/L (98-108); Creatinine, Blood 1.06 mg/dL (0.40-1.00); Globulin, Blood 3.6 g/dL (2.2-4.0); Glucose, Blood 91.0 mg/dL (70-99); Potassium, Blood 3.8 mmol/L (3.5-5.5); Sodium, Blood 139.0 mmol/L (136-145); Total Protein, Blood 6.8 g/dL (6.4-8.2)
[2024-10-20 19:05] LABS: Source, Urine Clean Catch
[2024-10-20 19:07] LABS: Bilirubin, Urine Neg (Neg); Glucose Qualitative, Urine Neg (Neg); Ketones, Urine Neg (Neg); Leukocyte Esterase, Urine Neg (Neg); Protein, Urine Neg (Neg); Specific Gravity, Urine 1.015 (1.003-1.022); Urobilinogen, Urine NORM (Normal)
[2024-10-20 19:16] LABS: Color, Urine Pale Yellow (P-Yellow)
[2024-10-20] MEDS ORDERED: Ketorolac Tromethamine 30mg Vial IV ONE (21:15)
[2024-10-20] MEDS ORDERED: Ipratropium/Albuterol SulF 2.5-0.5MG/3 ML Amp INH ONE (21:45)
[2024-10-20 22:19] LABS: Bacterial Vaginosis PCR Negative (NEGATIVE)
[2024-10-20 22:51] LABS: Candida Group, PCR DETECTED (NOT DETECT); Candida glabrata-krusei, PCR DETECTED (NOT DETECT)
[2024-10-20] MEDS ORDERED: HYDROCORTISON28.4 G2 TOP (23:24)
[2024-10-20] MEDS ORDERED: Diflucan150 MG PO (23:26)
== END 2024-10-21 00:12 | disposition home or self-care (01) ==
LOC: ER 15:25
PROVIDERS: Student in an Organized Health Care Education/Training Program
DX: B37.31 Acute candidiasis of vulva and vagina (principal); L30.8 Other specified dermatitis; R07.89 Other chest pain; E89.0 Postprocedural hypothyroidism; K21.9 Gastro-esophageal reflux disease without esophagitis; E78.5 Hyperlipidemia, unspecified; I12.9 Hypertensive chronic kidney disease with stage 1 through stage 4 chronic kidney disease, or unspecified chronic kidney disease; N18.4 Chronic kidney disease, stage 4 (severe); F17.210 Nicotine dependence, cigarettes, uncomplicated; Z91.013 Allergy to seafood; Z91.041 Radiographic dye allergy status; Z88.5 Allergy status to narcotic agent; Z79.890 Hormone replacement therapy; Z79.899 Other long term (current) drug therapy
CPT/HCPCS: 71046; 80053; 81003; 81515; 83880; 84484; 85025; 93005; 93010; 96374; 99284-25; A9270; J1885